=== PATIENT | female | born 1975 | race African-American/Black ===

== ENCOUNTER 2017-08-31 09:46 | Emergency (ER) | payer OTHER ==
[~2017-08-31] VITALS: Ht 157.5 cm; Wt 84.0 kg
[~2017-08-31 09:46] MED LIST: OXYC-360 PO; ZOFR4TAB3 SL
[2017-08-31 09:54] VITALS: BP 152/67; PULSE 73; RESP 16; TEMP 98.5; O2SAT 97
[2017-08-31 10:29] LABS: BLOOD, URINE NEG (NEG); GLUCOSE,URINE NEG (NEG); KETONE, URINE NEG (NEG); NITRITE,URINE NEG (NEG)
[2017-08-31 10:31] LABS: BACTERIA, URINE OCC /hpf; METHOD OF COLLECTION CLEAN CATCH; SQUAMOUS EPITHELIAL CELL URINE > 8 /hpf (0-5); URINE COLOR YELLOW (YELLW/STRAW); WBC, URINE 0-2 /hpf (0-5)
[2017-08-31 10:32] LABS: COMMENT (UR) CULT NOT INDICATED; CULTURE IF INDICATED CULT NOT INDICATED
[2017-08-31] MEDS ORDERED: ONDANSETRON HCL 4 MG/2 ML VIAL IVP ONE (10:45)
[2017-08-31] MEDS ORDERED: SODIUM CHLORIDE 0.9% FLUSH 10 ML FLUSH IV FLUSH PRN (10:45)
[2017-08-31] MEDS ORDERED: KETOROLAC TROMETHAMINE 30 MG/ML (IVP) VIAL IVP ONE (10:45)
[2017-08-31] MEDS ORDERED: SOD PHOSPHATE/SOD BIPHOSPHATE (ADULT) ENEMA 133ML RECTAL ONE (11:00)
[2017-08-31 11:05] VITALS: O2SAT 100
[2017-08-31 11:23] LABS: CHLORIDE 105 MEQ/L (98-107); POTASSIUM 3.9 MEQ/L (3.5-5.1); SODIUM (NA) 138 MEQ/L (136-145)
[2017-08-31 11:24] LABS: AUTOMATED NEUTROPHIL # 3.4 TH/MM3 (1.8-7.7); BASOPHIL # 0.1 TH/MM3 (0-0.2); BASOPHIL % 0.8 % (0.0-2.0); EOSINOPHIL # 0.2 TH/MM3 (0-0.4); EOSINOPHIL % 2.6 % (0.0-4.0); HEMATOCRIT 38.6 % (35.0-46.0); HEMO FLAGS DIFF FINAL; LYMPH % 37.5 % (9.0-44.0); LYMPHOCYTE # 2.4 TH/MM3 (1.0-4.8); MEAN CELL VOLUME 81.6 FL (80.0-100.0); MEAN CORPUSCULAR HEMOGLOBIN 26.1 PG (27.0-34.0); MONO % 5.1 % (0.0-8.0); PLATELET COUNT 352 TH/MM3 (150-450); RED BLOOD COUNT 4.73 MIL/MM3 (4.00-5.30); RED CELL DISTRIBUTION WIDTH 13.4 % (11.6-17.2); WHITE BLOOD COUNT 6.4 TH/MM3 (4.0-11.0)
[2017-08-31 11:27] LABS: ANION GAP 6 MEQ/L (5-15); BICARBONATE 26.7 MEQ/L (21.0-32.0); BLOOD UREA NITROGEN 9 MG/DL (7-18)
[2017-08-31 11:30] LABS: ALT (GPT) 24 U/L (10-53); AST (GOT) 22 U/L (15-37); GLOMERULAR FILTRATION RATE 84 ML/MIN (>89)
[2017-08-31 11:32] LABS: TOTAL BILIRUBIN ADULT 0.5 MG/DL (0.2-1.0)
[2017-08-31 11:33] LABS: ALKALINE PHOSPHATASE 95 U/L (45-117)
[2017-08-31] MEDS ORDERED: IOHEXOL 350 MG/ML 10 ML VIAL (for RAD DIAG) IVCONTRAST ONE (11:34)
[2017-08-31 11:35] VITALS: BP 136/83; PULSE 60; RESP 16; O2SAT 99
--- NOTE | 2017-08-31 11:55 | RADRPT ---
EXAM DATE/TIME: 08/31/2017 11:19 [facility] COMPARISON: No previous studies available for comparison. INDICATIONS : Lower pelvic pain and pressure. IV CONTRAST: 95 cc Omnipaque 350 (iohexol) IV ORAL CONTRAST: No oral contrast ingested. RADIATION DOSE: 17.06 CTDIvol (mGy) MEDICAL HISTORY : Irritiable bowel syndrome. SURGICAL HISTORY : section. Hysterectomy. ENCOUNTER: Initial ACUITY: 1 day PAIN SCALE: 6/10 LOCATION: lower quadrant TECHNIQUE: Volumetric scanning of the abdomen and pelvis was performed. Using automated exposure control and ad justment of the mA and/or kV according to patient size, radiation dose was kept as low as reasonably achievable to obtain optimal diagnostic quality images. DICOM format image data is available electro nically for review and comparison. FINDINGS: LOWER LUNGS: The visualized lower lungs are clear. LIVER: Homogeneous density without lesion. There is no dilation of the biliary tree. No calcified gallston es. SPLEEN: Normal size without lesion. PANCREAS: Within normal limits. KIDNEYS: Normal in size and shape. There is no mass, stone or hydronephrosis. ADRENAL GLANDS: Within normal limits. VASCULAR: There is no aortic aneurysm. BOWEL/MESENTERY: The stomach, small bowel, and colon demonstrate no acute abnormality. There is no free intraperitone al air or fluid. ABDOMINAL WALL: Within normal limits. RETROPERITONEUM: There is no lymphadenopathy. BLADDER: No wall thickening or mass. REPRODUCTIVE: The left ovary is mildly enlarged measuring 3.5 x 2.5 x 3.9 cm in size. Small cysts are identified. T here are no complex masses. There is no evidence of fluid in the cul-de-sac. INGUINAL: There is no lymphadenopathy or hernia. MUSCULOSKELETAL: Within normal limits for patient age. CONCLUSION: 1. No evidence of acute process. 2. Mildly prominent left ovary containing small cysts Freddy Peña MD on August 31, 2017 at 11:49 Board Certified Radiologist. This report was verified electronically.
--- NOTE | 2017-08-31 12:28 | PD ---
HPI Chief Complaint: Abdominal Pain Time Seen by Provider: 10:02 Travel History International Travel<30 days: No Contact w/Intl Traveler<30days: No Traveled to known affect area: No History of Present Illness HPI 42-year-old female complains of a severe pain in the pelvis in the rectum as if she has something pushing down however she cannot tell if she might be constipated or if there is a vaginal problem. She's had no bleeding or discharge. Patient has a history of hysterectomy. No fever or vomiting. The pain woke her up from sleep. It started a few hours now. No similar prior episode has occurred. She denies bleeding or discharge. PFSH Past Medical History Hx Anticoagulant Therapy: No Blood Disorders: No Cancer: No Cardiovascular Problems: No Chemotherapy: No Diabetes: No Endocrine: No Gastrointestinal Disorders: Yes (IBS) GERD: No Hepatitis: No Hiatal Hernia: No Immune Disorder: No Kidney Stones: No Neurologic: No Psychiatric: No Reproductive: No Respiratory: No Radiation Therapy: No Renal Failure: No Ulcer: No Tetanus Vaccination: Unknown Influenza Vaccination: No ?: Not : 2 Para: 2 Ovarian Cysts: Yes Past Surgical History Abdominal Surgery: No AICD: No Appendectomy: No Arteriovenous Shunt: No Cardiac Surgery: No Section: Yes Cholecystectomy: No Ear Surgery: No Endocrine Surgery: No Eye Surgery: No Genitourinary Surgery: No Gynecologic Surgery: Yes ( HYSTERECTOMY) Hysterectomy: Yes Insulin Pump: No Joint Replacement: No Oral Surgery: No Pacemaker: No Thoracic Surgery: No Other Surgery: Yes Social History Alcohol Use: No Tobacco Use: No Substance Use: No Allergies-Medications (Allergen,Severity, Reaction): Coded Allergies: amoxicillin (Unverified Allergy, Severe, Rash, 08/31/17) Reported Meds & Prescriptions Reported Meds & Active Scripts Active Flagyl (Metronidazole) 500 Mg Tab 500 Mg PO BID 7 Days Review of Systems Except as stated in HPI: all other systems reviewed are Neg General / Constitutional: No: Fever Gastrointestinal: Positive: Abdominal Pain Physical Exam Narrative GENERAL: Well-nourished well-developed 42-year-old female no acute distress RECTAL: There is no mass or impaction or fissure or fistula or significant hemorrhoid Her GENITOURINARY: White discharge within the vault mild generalized tenderness. SKIN: Warm and dry. HEAD: Atraumatic. Normocephalic. CARDIOVASCULAR: Regular rate and rhythm. RESPIRATORY: No accessory muscle use. Clear to auscultation. Breath sounds equal bilaterally. GASTROINTESTINAL: Abdomen soft, non-tender, nondistended. Hepatic and splenic margins not palpable. MUSCULOSKELETAL: Extremities without clubbing, cyanosis, or edema. No obvious deformities. NEUROLOGICAL: Awake and alert. No obvious cranial nerve deficits. Motor grossly within normal limits. Five out of 5 muscle strength in the arms and legs. Normal speech. PSYCHIATRIC: Appropriate mood and affect; insight and judgment normal. Data Data Last Documented VS Vital Signs Date Time Temp Pulse Resp B/P (MAP) Pulse Ox O2 Delivery O2 Flow Rate FiO2 08/31/17 12:45 58 18 142/72 (95) 99 Room Air 08/31/17 09:54 98.5 vital signs reviewed Orders Orders Urinalysis - C+S If Indicated (08/31/17 09:58) Complete Blood Count With Diff (08/31/17 10:38) Comprehensive Metabolic Panel (08/31/17 10:38) Ct Abd/Pel W Iv Contrast(Rout) (08/31/17 10:38) Iv Access Insert/Monitor (08/31/17 10:38) Ecg Monitoring (08/31/17 10:38) Oximetry (08/31/17 10:38) Ondansetron Inj (Zofran Inj) (08/31/17 10:45) Sodium Chloride 0.9% Flush (Ns Flush) (08/31/17 10:45) Ketorolac Inj (Toradol Inj) (08/31/17 10:45) Ed Urine Pregnancytest Poc (08/31/17 10:38) Enema (08/31/17 10:38) Fleets Enema (Adult) (Fleets Enema (Adul (08/31/17 11:00) Iohexol 350 Inj (Omnipaque 350 Inj) (08/31/17 11:34) Us Pelvis Comp W Doppler (08/31/17 12:17) Wet Prep Profile (08/31/17 12:25) Gc And Chlamydia Pcr (08/31/17 12:36) Azithromycin Powd Pack (Zithromax Powd P (08/31/17 14:00) Ceftriaxone Inj (Rocephin Inj) (08/31/17 14:00) Lidocaine 1% Inj (50 Ml) (Xylocaine 1% I (08/31/17 14:00) Ed Discharge Order (08/31/17 13:54) Ed Discharge Order (08/31/17 13:54) Labs Laboratory Tests Test 08/31/17 10:00 08/31/17 10:58 08/31/17 12:20 08/31/17 12:56 Urine Collection Type CLEAN CATCH Urine Color YELLOW Urine Turbidity CLEAR Urine pH 7.0 Urine Specific [place] 1.020 Urine Protein NEG mg/dL Urine Glucose (UA) NEG mg/dL Urine Ketones NEG mg/dL Urine Occult Blood NEG Urine Nitrite NEG Urine Bilirubin NEG Urine Leukocyte Esterase NEG Urine WBC 0-2 /hpf Urine Squamous Epithelial Cells > 8 /hpf Urine Bacteria OCC /hpf Microscopic Urinalysis Comment CULT NOT INDICATED Urine Collection Time 10:00 White Blood Count 6.4 TH/MM3 Red Blood Count 4.73 MIL/MM3 Hemoglobin 12.4 GM/DL Hematocrit 38.6 % Mean Corpuscular Volume 81.6 FL Mean Corpuscular Hemoglobin 26.1 PG Mean Corpuscular Hemoglobin Concent 32.0 % Red Cell Distribution Width 13.4 % Platelet Count 352 TH/MM3 Mean Platelet Volume 7.8 FL Neutrophils (%) (Auto) 54.0 % Lymphocytes (%) (Auto) 37.5 % Monocytes (%) (Auto) 5.1 % Eosinophils (%) (Auto) 2.6 % Basophils (%) (Auto) 0.8 % Neutrophils # (Auto) 3.4 TH/MM3 Lymphocytes # (Auto) 2.4 TH/MM3 Monocytes # (Auto) 0.3 TH/MM3 Eosinophils # (Auto) 0.2 TH/MM3 Basophils # (Auto) 0.1 TH/MM3 CBC Comment DIFF FINAL Differential Comment Blood Urea Nitrogen 9 MG/DL Creatinine 0.88 MG/DL Random Glucose 87 MG/DL Total Protein 7.8 GM/DL Albumin 3.7 GM/DL Calcium Level 8.7 MG/DL Alkaline Phosphatase 95 U/L Aspartate Amino Transf (AST/SGOT) 22 U/L Alanine Aminotransferase (ALT/SGPT) 24 U/L Total Bilirubin 0.5 MG/DL Sodium Level 138 MEQ/L Potassium Level 3.9 MEQ/L Chloride Level 105 MEQ/L Carbon Dioxide Level 26.7 MEQ/L Anion Gap 6 MEQ/L Estimat Glomerular Filtration Rate 84 ML/MIN Clue Cells (Wet Prep) NONE SEEN Vaginal Trichomonas (Wet Prep) NONE SEEN Vaginal Yeast (Wet Prep) NONE SEEN MDM Medical Decision Making Medical Screen Exam Complete: Yes Emergency Medical Condition: Yes Medical Record Reviewed: Yes Differential Diagnosis Constipation, Gastritis, Acute Cholecystitis, Biliary Colic, Pancreatitis, [place]ER[place] , Hepatitis, Bowel Obstruction, Cystitis, Mesenteric Ischemia, AAA, Appendicitis , Renal Stone/Hydronephrosis, GERD, perforated viscous Narrative Course CBC & BMP Diagram 08/31/17 10:58 Total Protein 7.8, Albumin 3.7, Calcium Level 8.7, Alkaline Phosphatase 95, Aspartate Amino Transf (AST/SGOT) 22, Alanine Aminotransferase (ALT/SGPT) 24, Total Bilirubin 0.5 Last Impressions Pelvis Ultrasound 08/31/17 1217 Signed Impressions: Service Date/Time: Thursday, August 31, 2017 13:07 - CONCLUSION: 1. Small, physiologic follicular type cysts in both ovaries. 2. The left ovary is slightly larger than the right by approximately 1 cm. However, blood flow was preserved to both organs. 3. Hysterectomy. No free fluid. Les Zuniga MD Abdomen/Pelvis CT 08/31/17 1038 Signed Impressions: Service Date/Time: Thursday, August 31, 2017 11:19 - CONCLUSION: 1. No evidence of acute process. 2. Mildly prominent left ovary containing small cysts Freddy Peña MD Imaging is more or less unremarkable. On pelvic exam there is a significant volume of white discharge. The wet prep is negative however I believe it's probably a false negative and we will treat the patient with Rocephin and azithromycin and Flagyl. Patient was reassessed at 1350 and found to be resting comfortably and reports near complete resolution of pain wonders if symptoms could be consistent with ovarian cyst which is not unreasonable given the results of the ultrasound. In any case the patient is now ready for discharge. Diagnosis Primary Impression: Pelvic pain in female Referrals: Primary Care Physician call for appointment Additional Instructions: You have a choice when it comes to health care, and we are glad that you chose [facility]. Hopefully, we have met your expectations on today's visit. You are welcome to return to [facility] at any time, as we are committed to meeting the health care needs of our community. Med/Other Pt SpecificInfo: Prescription(s) given Scripts Metronidazole (Flagyl) 500 Mg Tab 500 MG PO BID for Infection for 7 Days, #14 TAB 0 Refills Prov: Sharan Alvarado MD 08/31/17 Disposition: 01 DISCHARGE HOME Condition: Stable Sharan Alvarado MD Aug 31, 2017 12:27
[2017-08-31 12:45] VITALS: BP 142/72; PULSE 58; RESP 18; O2SAT 99
--- NOTE | 2017-08-31 13:44 | RADRPT ---
EXAM DATE/TIME: 08/31/2017 13:07 [facility] COMPARISON: CT ABDOMEN & PELVIS W CONTRAST, August 31, 2017, 11:19. GRAVID: 3 PARA: 2 AB: 1 PREV ECTOPIC: No LMP: unknown- hysterectomy BLEEDING: No C-SE CTION: Yes BC: No HRT? No PAIN: Yes If Yes, LOC: Right BH CG: N/A INDICATIONS : Pelvic pain. MEDICAL HISTORY : Neck pain. Ovarian cysts. SURGICAL HISTORY : section. Hysterectomy. ENCOUNTER: Initial ACUITY: 1 day PAIN SCORE: 8/10 LOCATION: Bilateral pelvis MEASUREMENTS: UTERUS: Surgically absent RIGHT OVARY: 3.1 x 3.0 x 2.4 cm LEFT OVARY: 4.1 x 3.2 x 2.8 cm FINDINGS: UTERUS: Not visualized characteristic of a reported history of hysterectomy. No mass lesions in the uterine b ed. RIGHT OVARY: Ovary contains no mass or significant cystic lesion. Small, benign follicular type cysts LEFT OVARY: Ovary contains no mass or significant cystic lesion. A small, benign follicular type cysts MISCELLANEOUS: No free fluid. CONCLUSION: 1. Small, physiologic follicular type cysts in both ovaries. 2. The left ovary is slightly larger than the right by approximately 1 cm. However, blood flow was pr eserved to both organs. 3. Hysterectomy. No free fluid. Les Zuniga MD on August 31, 2017 at 13:40 Board Certified Radiologist. This report was verified electronically.
[2017-08-31] MEDS ORDERED: METR-1 PO (13:48)
[2017-08-31] MEDS ORDERED: AZITHROMYCIN PWD FOR SUSP 1 GM PACKET PO ONE (14:00)
[2017-08-31] MEDS ORDERED: LIDOCAINE HCL 1% 50 ML VIAL IM ONE (14:00)
[2017-08-31] MEDS ORDERED: cefTRIAXone 250 MG VIAL IM ONE (14:00)
[2017-08-31 14:25] VITALS: BP 133/78
[2017-08-31 18:12] LABS: CHLAMYDIA PCR NOT DETECTED (NOT DETECT); NEISSERIA PCR NOT DETECTED (NOT DETECT)
== END 2017-08-31 14:27 | disposition home or self-care (01) ==
LOC: PHED 09:46
DX: R10.2 Pelvic and perineal pain (principal)
CPT/HCPCS: 74177; 76856; 80053; 81001; 85025; 87210; 87491; 87591; 93975; 96374; 96375; 99285; J1885; J2405; Q9967